=== PATIENT | female | born 1990 | race Two or more races ===

== ENCOUNTER 2025-07-12 08:20 | Emergency (ER) | payer BC, OTHER ==
[~2025-07-12] VITALS: Ht 162.6 cm; Wt 64.8 kg
[2025-07-12 08:51] VITALS: RESP 18; O2SAT 98
--- NOTE | 2025-07-12 08:57 | ED.PDOC ---
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 Patient states that she is currently [id number] , and began to experience symptoms of abnormal vaginal bleeding with associated cramping sudden onset, last night (07/11/25). Patient reports, as of today bleeding quality has now worsened. Patient denies any trauma, injury, fall, vaginal discharge, nausea, or vomiting. No other symptoms or modifying factors are present at this time. Chief Complaint: Vaginal Bleed Time Seen by MD: 08:40 Reviewed Notes: Nurses Notes, Medications, Allergies Allergies: Coded Allergies: NO KNOWN ALLERGIES (Unverified , 07/12/25) Home Meds Active Scripts Nitrofurantoin Monohydrate Mac (Macrobid) 100 Mg Cap, 100 MG PO BID for 5 Days, #10 CAP Prov:DAKOTA YU MD 07/12/25 Information Source: Patient Mode of Arrival: Ambulatory Timing: Days Prehospital treatment: None Severity: Moderate Vaginal Discharge: None Vaginal Lesions: None Bleeding Quality: Bright Red Vaginal Mass: None Onset Of Mass/Bleeding: Spontaneous Sexual Activity: Last Consensual [place]: Unknown Control: None History of: Current Blood Type: Unknown Symptoms of Possible : None Associated Signs and Symptoms: Vaginal Bleeding, Cramping Past Medical History PAST MEDICAL HISTORY: Denies Surgical History: Denies all surgeries FUNDING COORDINATOR History: Denies all FUNDING COORDINATOR Hx Family History Family History: Unknown, Family hx of DM Social History Smoker: Non-Smoker Alcohol: Denies ETOH Use Drugs: Denies Drug Use Lives In: Home Constitutional: denies: chills, diaphoresis, fatigue, fever, malaise, sweats, weakness, others EENTM: denies: blurred vision, double vision, ear bleeding, ear discharge, ear drainage, ear pain, ear ringing, eye pain, eye redness, hearing loss, mouth pain, mouth swelling, nasal discharge, nose bleeding, nose congestion, nose pain , photophobia, tearing, throat pain, throat swelling, voice changes, others Respiratory: denies: cough, hemoptysis, orthopnea, SOB at rest, shortness of breath, SOB with excertion, stridor, wheezing, others Cardiovascular: denies: chest pain, dizzy spells, diaphoresis, Dyspnea on exertion, edema, irregular heart beat, left arm pain, lightheadedness, palpitations, PND, syncope, others Gastrointestinal: denies: abdomen distended, abdominal pain, blood streaked bowels, constipated, diarrhea, dysphagia, difficulty swallowing, hematemesis, melena, nausea, poor appetite, poor fluid intake, rectal bleeding, rectal pain, vomiting, others Genitourinary: reports: abnormal vagina bleeding; denies: burning, dyspareunia, dysuria, flank pain, frequency, hematuria, incontinence, pain, , vagina discharge, urgency, others Neurological: denies: dizziness, fainting, headache, left sided numbness, left sided weakness, numbness, paresthesia, pre-existing deficit, right sided numbness, right sided weakness, seizure, speech problems, tingling, tremors, weakness, others Musculoskeletal: denies: back pain, gout, joint pain, joint swelling, muscle pain, muscle stiffness, neck pain, others Integumetry: denies: bruises, change in color, change in hair/nails, dryness, laceration, lesions, lumps, rash, wounds, others Allergic/Immunocompromised: denies: Difficulty Healing, Frequent Infections, Hives, Itching, others Hematologic/Lymphatic: denies: anemia, blood clots, easy bleeding, easy bruising, swollen glands, others Endocrine: denies: excessive hunger, excessive sweating, excessive thirst, excessive urination, flushing, intolerance to cold, intolerance to heat, unexplained weight gain, unexplained weight loss, others Psychiatric: denies: anxiety, bipolar disorder, depression, hopeless, panic disorder, schizophrenia, sleepless, suicidal, others All Other Systems: Reviewed and Negative Physical Exam General Appearance: Mild Distress HEENT: Normal ENT Inspection, Pharynx Normal, TMs Normal Neck: Full Range of Motion, Non-Tender, Normal, Normal Inspection Respiratory: Chest Non-Tender, Lungs Clear, No Accessory Muscle Use, No Respiratory Distress, Normal Breath Sounds Cardiovascular: No Edema, No JVD, No Murmur, No Gallop, Normal Peripheral Pulses, Regular Rate/Rhythm Breast Exam: Deferred Gastrointestinal: No Organomegaly, Non Tender, No Pulsatile Mass, Normal Bowel Sounds, Soft Genitalia: Deferred Pelvic: Deferred Rectal: Deferred Extremities: No calf tenderness, Normal capillary refill, Normal inspection, Normal range of motion, Non-tender, No pedal edema Musculoskeletal : Apperance: Normal Neurologic: Alert, 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 Was a procedure done?: No Differential Diagnosis (FUNDING COORDINATOR) Vaginal Bleeding: - Inevitable, - Threatened Mass / Lesion: N/A Vaginal Discharge: N/A X-Ray, Labs, Meds, VS Vital Signs Date Time Temp Pulse Resp B/P (MAP) Pulse Ox O2 Delivery O2 Flow Rate FiO2 07/12/25 08:51 18 98 Room Air* 0 21 07/12/25 08:24 97.4 85 16 122/78 98 97.4 Lab Test 07/12/25 09:30 07/12/25 08:55 Range/Units Urine Color Colorless Yellow Urine Clarity Turbid H Clear Urine pH 6.5 5.0-9.0 Urine Specific [place] 1.005 1.001-1.035 Urine Protein Trace H Negative Urine Ketones Negative Negative Urine Blood 3+ H Negative /uL Urine Nitrite Negative Negative Urine Bilirubin Negative Negative Urine Urobilinogen Normal Negative mg/dL Urine Leukocyte Esterase Negative Negative /uL Urine RBC 175 0 - 4 /hpf Urine Microscopic WBC 75 H 0-5 /HPF Urine Squamous Epithelial Cells Few <5 /hpf Urine Bacteria Few H None Seen /hpf Urine Hyaline Casts Few 0 - 2 /lpf Urine Glucose Normal Normal mg/dL Beta HCG, Quantitative 40.2 H 1.5-4.2 mIU/mL Ultrasound of the pelvis shows: IMPRESSION: No IUP or saclike structure seen. Given current beta HCG levels, differential includes early normal nonvisualized IUP, nonvisualized failed , and occult ectopic . Suggest correlation with serial beta HCG levels and follow-up ultrasound exams as clinically indicated. The urine test is positive for UTI The quantitative hCG is only 40.2 The patient is being discharged and will follow up with the primary care doctor The patient will return to the emergency department's condition worsens The patient understands and agrees with the management The patient is given a prescription of Macrobid We have discussed the findings with the patient. Images Reviewed?: Images reviewed and evaluated by me Time of 1ST Reevaluation: 09:10 Reevaluation 1ST: Unchanged Time of 2ND Reevaluation: 10:44 Reevaluation 2ND: Improved Patient Education/Counseling: Diagnosis, Treatment, Prognosis, Need For Follow Up Family Education/Counseling: No Family Present Departure 1 Departure Time of Disposition: 10:45 Impression: Primary Impression: Inevitable Additional Impression: UTI (urinary tract infection) Qualified Codes: N30.00 - Acute cystitis without hematuria Disposition: HOME / SELF CARE / HOMELESS Condition: Fair e-Prescriptions Nitrofurantoin Monohydrate Mac (Macrobid) 100 Mg Cap 100 MG PO BID for 5 Days, #10 CAP Prov: DAKOTA YU MD 07/12/25 Discharged With: Self Critical Care Note Critical Care Time?: No Stability Stability form required: No Heart Score Heart Score: Heart Score Response (Comments) Value History N/A 0 EKG N/A 0 Age N/A 0 Risk Factors N/A 0 Troponin N/A 0 Total 0 I personally scribed for DAKOTA YU MD ([email or web address]) on 07/12/25 at 08:57. Electronically submitted by Jessica Sanders ([email or web address]). DAKOTA YU MD Jul 12, 2025 08:57
[2025-07-12 10:13] LABS: Urine Protein, UAD TRACE (Negative)
--- NOTE | 2025-07-12 10:41 | DVH ---
CLINICAL HISTORY: vag bleeding with beta HCG level of 40. TECHNIQUE: Ultrasound examination of the female pelvis was performed transabdominal. Transvaginal leo ging was not performed per patient request. COMPARISON: None FINDINGS: The uterus measures 7.1 X 3.9 X 5.2 CM. The myometrial echotexture is homogenous. No focal myometria l abnormality is seen. The endometrial lining is normal in thickness, measuring 8 mm. No iup or saclike structure is seen. The right ovary measures 2.8 X 2.2 X 1.3 cm. The left ovary measures 2.5 X 2.6 X 2.1 cm. Normal color doppler flow and vascular waveforms. There is no free fluid. IMPRESSION: No IUP or saclike structure seen. Given current beta HCG levels, differential includes early normal n onvisualized IUP, nonvisualized failed , and occult ectopic . Suggest correlation w ith serial beta HCG levels and follow-up ultrasound exams as clinically indicated.
[2025-07-12] MEDS ORDERED: NITR-87 PO (10:46)
[2025-07-12 10:57] VITALS: BP 109/78; PULSE 73; RESP 17; TEMP 98.4; O2SAT 99
== END 2025-07-12 10:59 | disposition home or self-care (01) ==
LOC: ER 08:20
DX: O03.9 Complete or unspecified spontaneous abortion without complication (principal); O03.38 Urinary tract infection following incomplete spontaneous abortion; N39.0 Urinary tract infection, site not specified; Z79.899 Other long term (current) drug therapy; Z3A.01 Less than 8 weeks gestation of pregnancy
CPT/HCPCS: 36415; 76801; 81001; 84702